=== PATIENT | male | born 1995 | race Hispanic/Latino ===

== ENCOUNTER 2023-10-18 12:59 | Emergency (ER) | payer BC ==
[2023-10-18 13:24] LABS: Absolute Basophils 0.1 K/uL (0-0.5); Absolute Eosinophils 0.2 K/uL (0-0.5); Absolute Lymphocytes (CBC) 2.7 K/uL (0.7-4.9); Absolute Monocytes 0.7 K/uL (0.1-1.3); Absolute Neutrophil 5.5 K/uL (1.8-8.0); Basophils % 0.6 % (0-1.3); Eosinophils % 2.1 % (0-4.4); Hematocrit 49.4 % (39.6-49.0); Hemoglobin 15.8 g/dL (13.6-17.9); Lymphocytes % 29.7 % (15.3-44.8); MCH 27.6 pg (27.0-35.0); MCHC 32.1 g/dL (32.0-36.0); MPV 8.3 fL (7.6-11.3); Monocytes % 7.4 % (3.3-12.3); Neutrophils % 60.2 % (41.7-73.7); Platelets 269 thou/uL (152-406); RBC Red Blood Cell Count 5.75 M/uL (4.33-5.43); Red Cell Distribution Width 13.6 % (12.1-15.2)
[2023-10-18 13:29] LABS: Specific Gravity 1.022 (1.005-1.030); Sqamous Epithelial <5 /HPF (None Seen); Urine Bacteria None Seen /HPF (<20); Urine Bilirubin NEGATIVE (Negative); Urine Blood Negative (Negative); Urine Clarity Clear (Clear); Urine Color Light-Yellow (Yellow); Urine Culture Reflex Order NOT NEEDED; Urine Glucose NEGATIVE (Negative); Urine Ketones NEGATIVE (Negative); Urine Microscopic Reflex YN ORDER UMIC; Urine Mucus Slight /HPF (None Seen); Urine Nitrite NEGATIVE (Negative); Urine Protein NEGATIVE (Negative); Urine RBC <5 /HPF (None Seen); Urine Urobilinogen Normal (Normal); Urine WBC <5 /HPF (<5)
[2023-10-18 13:42] LABS: Albumin 3.8 g/dL (3.4-5.0); Albumin/Globulin Ratio 0.8 (1.1-1.8); Anion Gap 7.9 mEq/L (5.0-15.0); Bilirubin Total 0.2 mg/dL (0.2-1.0); Globulin 4.5 g/dL (2.3-3.5); Potassium 3.9 mEq/L (3.5-5.1); Protein, Total 8.3 g/dL (6.4-8.2)
[2023-10-18] MEDS ORDERED: MAGNES/ALUMIN/SIMET 30ML UCUP ONE (13:51)
[2023-10-18] MEDS ORDERED: LIDOCAINE VISCOUS 2% 10ML ORAL SOLN ONE ×2 (13:51)
[2023-10-18] MEDS ORDERED: PANTOPRAZOLE 40 MG INJ ONE (13:51)
[2023-10-18] MEDS ORDERED: MORPHINE 4 MG/ML SYR ONE (14:33)
[2023-10-18] MEDS ORDERED: ONDANSETRON 4 MG/2 ML VIAL ONE (14:33)
--- NOTE | 2023-10-18 14:57 | RAD REPORT ---
EXAM DESCRIPTION: CTAbdomen Pelvis W Contrast - 10/18/2023 2:29 pm CLINICAL HISTORY: ABD PAIN COMPARISON: No comparisons TECHNIQUE: CT of the abdomen and pelvis was performed with IV contrast. All CT scans are performed using dose optimization technique as appropriate and may include automated exposure control or mA/KV adjustment according to patient size. FINDINGS: Lower chest: No acute abnormality. Liver: Hepatic steatosis . Biliary: A 6 mm stone is impacted in the region of the cystic duct. The gallbladder is distended. No pericholecystic inflammatory changes. Stomach: No significant focal abnormality. Duodenum: No significant focal abnormality. Pancreas: No significant abnormality. Spleen: No significant abnormality. Adrenal: No suspicious lesions. Kidney/ureter: No hydronephrosis. No renal calculi. Retroperitoneum: No retroperitoneal adenopathy. Vascular: No aneurysm. Bowel: Normal appendix. No bowel obstruction.. Peritoneum: No ascites or free air. Bladder: Grossly unremarkable. Reproductive: No adnexal masses. Bones: No acute fracture. Other: n/a IMPRESSION: A stone is impacted in the cystic duct. The gallbladder is distended but no pericholecys tic inflammatory changes. Early or mild acute cholecystitis difficult to exclude. Hepatic steatosis a lso noted.
--- NOTE | 2023-10-18 15:24 | EDPHYS ---
Physician Documentation [facility] Name: Misael Hernandez Age: 28 yrs Sex: Male : 1995 Arrival Date: 10/18/2023 Time: 12:59 Bed 20 Private MD: LAUREN Physician Campos Siddiqi HPI: 10/17 13:37 This 28 yrs old Male presents to ER via Ambulatory with complaints of jr8 Abdominal Pain, Shortness Of Breath. 13:37 The patient presents with abdominal pain. Onset: The symptoms/episode began/occurred jr8 acutely, today. The symptoms do not radiate. Associated signs and symptoms: Pertinent positives: nausea and vomiting. The symptoms are described as stabbing. Modifying factors: The symptoms are alleviated by nothing, the symptoms are aggravated by food. Severity of pain: At its worst the pain was moderate in the emergency department the pain is unchanged. The patient has experienced similar episodes in the past, a few times. The patient has not recently seen a physician. Patient stated that he has had on/off abdominal pain for past 6 months. Stated that he drinks heavily 1-2 times per week. Has pain with food occasionally. Had several drinks last night along with greasy food. Stated that pain started again and cannot get it to go away. Normally last about 1-2 hours and can take Tums or Pepto-Bismol with relief. . Historical: - Allergies: 13:04 No Known Allergies; iw - Home Meds: 13:04 None [Active]; iw - PMHx: 13:04 None; iw - PSHx: 13:04 Tonsillectomy; iw - Immunization history:: Adult Immunizations Adult Immunizations not up to date. - Infectious Disease History:: Denies. - Social history:: Smoking status: Patient denies any tobacco usage or history of. ROS: 13:37 Eyes: Negative for injury, pain, redness, and discharge, ENT: Negative for injury, jr8 pain, and discharge, Neck: Negative for injury, pain, and swelling, Cardiovascular: Negative for chest pain, palpitations, and edema, Respiratory: Negative for shortness of breath, cough, wheezing, and pleuritic chest pain, Back: Negative for injury and pain, MS/Extremity: Negative for injury and deformity, Skin: Negative for injury, rash, and discoloration, Neuro: Negative for headache, weakness, numbness, tingling, and seizure, 13:37 Abdomen/GI: Positive for abdominal pain, nausea and vomiting, Negative for diarrhea, hematemesis, black/tarry stool, Exam: 13:37 Constitutional: This is a well developed, well nourished patient who is awake, alert, jr8 and in no acute distress. Eyes: Pupils equal round and reactive to light, extra-ocular motions intact. Lids and lashes normal. Conjunctiva and sclera are non-icteric and not injected. Cornea within normal limits. Periorbital areas with no swelling, redness, or edema. Neck: Trachea midline, no thyromegaly or masses palpated, and no cervical lymphadenopathy. Supple, full range of motion without nuchal rigidity, or vertebral point tenderness. No Meningismus. Cardiovascular: Regular rate and rhythm with a normal S1 and S2. No gallops, murmurs, or rubs. Normal PMI, no JVD. No pulse deficits. Respiratory: Lungs have equal breath sounds bilaterally, clear to auscultation and percussion. No rales, rhonchi or wheezes noted. No increased work of breathing, no retractions or nasal flaring. Back: No spinal tenderness. No costovertebral tenderness. Full range of motion. Skin: Warm, dry with normal turgor. Normal color with no rashes, no lesions, and no evidence of cellulitis. MS/ Extremity: Pulses equal, no cyanosis. Neurovascular intact. Full, normal range of motion. Neuro: Awake and alert, GCS 15, oriented to person, place, time, and situation. Cranial nerves II-XII grossly intact. Motor strength 5/5 in all extremities. Sensory grossly intact. Cerebellar exam normal. Normal gait. 13:37 Abdomen/GI: Inspection: abdomen appears normal, Bowel sounds: active, all quadrants, Palpation: soft, in all quadrants, moderate abdominal tenderness, in the epigastric area, right upper quadrant and left upper quadrant, mass, is not appreciated, rebound tenderness, is not appreciated, voluntary guarding, is not appreciated, involuntary guarding, is not appreciated, no appreciated organomegaly, Indicators: McBurney's point is not tender, Gama's sign is negative, Rovsing's sign is negative, Liver: tenderness, is not appreciated, Vital Signs: 13:03 BP 141 / 94; Pulse 84; Resp 16; Pulse Ox 98% on R/A; Weight 102.06 kg; Height 5 ft. 6 iw in. ; Pain 6/10; 14:38 BP 125 / 61; Pulse 96; Resp 16; Pulse Ox 99% ; cm10 15:58 BP 143 / 76; Pulse 68; Resp 16; Pulse Ox 99% ; cm10 13:03 Body Mass Index 36.32 (102.06 kg, 167.64 cm) iw 13:03 Pain Scale: Adult iw MDM: 13:19 Patient medically screened. jr8 13:37 Differential diagnosis: bowel obstruction, cholecystitis, Cholelithiasis, jr8 diverticulitis, gastritis, gastroesophageal reflux disease, Hepatitis, non-specific abd pain, pancreatitis, Peptic Ulcer Disease. 15:16 Data reviewed: vital signs, nurses notes, lab test result(s), radiologic studies, CT jr8 scan. 15:20 Consideration of Admission/Observation Escalation of care including jr8 admission/observation considered. Management of patient was discussed with the following: Mud Analysis Well Logging Captain: Dr. whitney consulted on case secondary to gallbladder distension and 6mm cystic duct stone noted on CT. Wants to see if patient can tolerated outpatient therapy and would see patient on Friday. If not would be happy to admit. Discussed with patient his options. Wants to do outpatient first and is fine with seeing him on Friday. Pain controlled at this time. Will start on pain meds, abx, and nausea meds . Counseling: I had a detailed discussion with the patient and/or guardian regarding the historical points, exam findings, and any diagnostic results supporting the discharge/admit diagnosis, lab results, radiology results, the need for outpatient follow up, a general surgeon, to return to the emergency department if symptoms worsen or persist or if there are any questions or concerns that arise at home. 10/17 13:10 Order name: CBC with Diff; Complete Time: 13:33 10/17 13:10 Order name: CMP; Complete Time: 14:01 10/17 13:10 Order name: Lipase; Complete Time: 14:01 10/17 13:14 Order name: Urinalysis w/ reflexes; Complete Time: 13:33 cm10 10/17 14:02 Order name: CT Abd/Pelvis - IV Contrast Only; Complete Time: 15:00 8 10/17 13:10 Order name: IV Saline Lock; Complete Time: 13:15 jr8 10/17 13:10 Order name: Labs collected and sent; Complete Time: 13:15 jr8 Administered Medications: 13:58 Drug: GI Cocktail without - (Maalox PO 30 ml, Lidocaine Mucous Membrane 2 % 15 cm10 ml) PO once Route: PO; 14:55 Follow up: Response: No adverse reaction; No change in condition cm10 13:58 Drug: Pantoprazole IVP 40 mg IVP once Route: IVP; Site: right antecubital; cm10 14:55 Follow up: Response: No adverse reaction; No change in condition cm10 14:38 Drug: morphine IVP or IV 4 mg IVP once over 4 mins Route: IVP; Infused Over: 4 mins; cm10 Site: right antecubital; 15:00 Follow up: Response: No adverse reaction cm10 14:38 Drug: Ondansetron IVP 4 mg IVP once; over 2 minutes Route: IVP; Site: right antecubital;cm10 15:08 Follow up: Response: No adverse reaction cm10 Disposition Summary: 10/18/23 15:23 Discharge Ordered Notes: Location: Home jr8 Problem: new jr8 Symptoms: have improved jr8 Condition: Stable jr8 Diagnosis - Epigastric pain jr8 - Other cholelithiasis with obstruction jr8 Followup: jr8 - With: Earl Whitney MD - When: 1 - 2 days - Reason: Recheck today's complaints, Continuance of care, Re-evaluation by your physician Discharge Instructions: - Discharge Summary Sheet jr8 - Abdominal Pain, Adult jr8 - Biliary Colic, Adult jr8 - Cholelithiasis jr8 - Gallbladder Eating Plan jr8 Forms: - Medication Reconciliation Form jr8 - Antibiotic Education jr8 - Prescription Opioid Use jr8 - Patient Portal Instructions jr8 - Leadership Thank You Letter jr8 Prescriptions: - Augmentin 875-125 mg Oral Tablet - take 1 tablet ORAL route every 12 hours for 10 days; 20 tablet; Refills: 0, jr8 Product Selection Permitted - Zofran 4 mg Oral tablet - take 1 tablet ORAL route 3 times per day As needed; 20 tablet; Refills: 0, jr8 Product Selection Permitted - Tramadol 50 mg Oral tablet - take 2 tablet ORAL route every 8 hours as needed; 24 tablet; Refills: 0, jr8 Product Selection Permitted Signatures: Dispatcher [employer] Shanell Mckeon, RN RN iw Nilesh Mendoza PA PA jr8 Jennifer Wayne RN RN cm10
--- NOTE | 2023-10-18 15:24 | ER ---
Nurse's Notes [facility] Name: Misael Hernandez Age: 28 yrs Sex: Male : 1995 Arrival Date: 10/18/2023 Time: 12:59 Bed 20 Private MD: Diagnosis: Epigastric pain;Other cholelithiasis with obstruction Presentation: 10/17 13:03 Chief complaint: Patient states: upper abd pain since 4 am, vomited once , was drinking iw a lot night. Coronavirus screen: At this time, the client does not indicate any symptoms associated with coronavirus-19. Ebola Screen: No symptoms or risks identified at this time. Initial Sepsis Screen: Does the patient meet any 2 criteria? No. Patient's initial sepsis screen is negative. Does the patient have a suspected source of infection? No. Patient's initial sepsis screen is negative. Risk Assessment: Do you want to hurt yourself or someone else? Patient reports no desire to harm self or others. Onset of symptoms was October 18, 2023. 13:03 Method Of Arrival: Ambulatory iw 13:03 Acuity: ERENDIRA 3 iw Triage Assessment: 13:20 General: Appears in no apparent distress. uncomfortable, Behavior is calm, cooperative. cm10 Pain: Complains of pain in epigastric area Pain does not radiate. Pain currently is 6 out of 10 on a pain scale. Quality of pain is described as sharp, Pain began suddenly. Neuro: No deficits noted. Level of Consciousness is awake, alert, obeys commands, Oriented to person, place, time, situation, Appropriate for age. Respiratory: No deficits noted. Airway is patent Respiratory effort is even, unlabored, Respiratory pattern is regular, symmetrical. GI: No deficits noted. Abdomen is flat, Bowel sounds hyperactive in right upper quadrant, left upper quadrant, right lower quadrant and left lower quadrant. Derm: No deficits noted. Skin is intact, Skin is pink, warm \T\ dry. Historical: - Allergies: 13:04 No Known Allergies; iw - Home Meds: 13:04 None [Active]; iw - PMHx: 13:04 None; iw - PSHx: 13:04 Tonsillectomy; iw - Immunization history:: Adult Immunizations Adult Immunizations not up to date. - Infectious Disease History:: Denies. - Social history:: Smoking status: Patient denies any tobacco usage or history of. Screenin:21 [facility] ED Fall Risk Assessment (Adult) History of falling in the last 3 months, cm10 including since admission No falls in past 3 months (0 pts) Confusion or Disorientation No (0 pts) Intoxicated or Sedated Yes (3 pts) Impaired Gait No (0 pts) Mobility Assist Device Used No (0 pt) Altered Elimination No (0 pt) Score/Fall Risk Level 0 - 2 = Low Risk Oriented to surroundings, Maintained a safe environment, Provided non-skid footwear, Hourly rounding (assess needs \T\ fall precautionary measures) done. Abuse screen: Denies threats or abuse. Denies injuries from another. Nutritional screening: No deficits noted. Tuberculosis screening: No symptoms or risk factors identified. Assessment: 13:58 Reassessment: Patient appears in no apparent distress at this time. No changes from cm10 previously documented assessment. Patient and/or family updated on plan of care and expected duration. Pain level reassessed. Patient is alert, oriented x 3, equal unlabored respirations, skin warm/dry/pink. Vital Signs: 13:03 BP 141 / 94; Pulse 84; Resp 16; Pulse Ox 98% on R/A; Weight 102.06 kg; Height 5 ft. 6 iw in. ; Pain 6/10; 14:38 BP 125 / 61; Pulse 96; Resp 16; Pulse Ox 99% ; cm10 15:58 BP 143 / 76; Pulse 68; Resp 16; Pulse Ox 99% ; cm10 13:03 Body Mass Index 36.32 (102.06 kg, 167.64 cm) iw 13:03 Pain Scale: Adult iw ED Course: 13:00 Patient arrived in ED. im 13:04 Triage completed. iw 13:04 Arm band placed on. iw 13:10 Nilesh Mendoza PA is PHCP. jr8 13:10 Campos Siddiqi MD is Attending Physician. jr8 13:14 Jennifer Wayne, AUNG is Primary Nurse. cm10 13:15 CBC with Diff Sent. cm10 13:15 CMP Sent. cm10 13:15 Lipase Sent. cm10 13:15 Initial lab(s) drawn, by ut, sent to lab. Urine collected: clean catch specimen. cm10 Inserted saline lock: 20 gauge in right antecubital area, using aseptic technique. Blood collected. Flushed with 10 mL NS. 13:15 Urinalysis w/ reflexes Sent. cm10 13:21 Patient has correct armband on for positive identification. Bed in low position. Call cm10 light in reach. Side rails up X 1. Provided Education on: ER process and procedures.. Pulse ox on. NIBP on. 14:30 CT Abd/Pelvis - IV Contrast Only In Process Unspecified. EDMS 15:22 Earl Rodriguez MD is Referral Physician. [facility] 15:59 No provider procedures requiring assistance completed. IV discontinued, intact, cm10 bleeding controlled, No redness/swelling at site. Pressure dressing applied. Administered Medications: 13:58 Drug: GI Cocktail without - (Maalox PO 30 ml, Lidocaine Mucous Membrane 2 % 15 cm10 ml) PO once Route: PO; 14:55 Follow up: Response: No adverse reaction; No change in condition cm10 13:58 Drug: Pantoprazole IVP 40 mg IVP once Route: IVP; Site: right antecubital; cm10 14:55 Follow up: Response: No adverse reaction; No change in condition cm10 14:38 Drug: morphine IVP or IV 4 mg IVP once over 4 mins Route: IVP; Infused Over: 4 mins; cm10 Site: right antecubital; 15:00 Follow up: Response: No adverse reaction cm10 14:38 Drug: Ondansetron IVP 4 mg IVP once; over 2 minutes Route: IVP; Site: right antecubital;cm10 15:08 Follow up: Response: No adverse reaction cm10 Medication: 13:21 VIS not applicable for this client. cm10 Outcome: 15:23 Discharge ordered by . jr8 15:59 Discharged to home ambulatory, with significant other, cm10 15:59 Condition: good 15:59 Discharge instructions given to patient, Instructed on discharge instructions, follow up and referral plans. medication usage, Demonstrated understanding of instructions, follow-up care, medications, Prescriptions given X 3, 16:00 Patient left the ED. cm10 Signatures: Dispatcher [employer] EDMS Shanell Chappell RN RN iw Roszak, Josh, PA PA jr8 Mery Musa Clarissa, RN RN cm10
[2023-10-18 16:23] VITALS: O2SAT 99
[2023-10-18 16:24] VITALS: BP 143/76
== END 2023-10-18 16:00 | disposition home or self-care (01) ==
LOC: ER 12:59
DX: K80.81 Other cholelithiasis with obstruction (principal)
CPT/HCPCS: 85025; 81001; 36415; 83690; 80053; 74177; 96375; 96374; 99284; Q9967; J2470; J2405

== ENCOUNTER 2024-10-20 02:35 | Emergency (ER) | payer BC ==
--- OUTSIDE RECORDS SUMMARY | 2024-10-20 02:38 | XMS REPORT | Continuity of Care Document ---
Author Name Unknown Address [address] [place] [address] Organization [facility] [place] Address [address] [place] [address] Care Team Providers Care Income Tax Preparer Name Role Phone Driss Blake Attending Clinician Unavailable Shield Attending Clinician Unavailable SHARON MELÉNDEZ Attending Clinician DUNCAN Bowman Attending Clinician OLIVIER Kuo Attending Clinician Unavailable PATTI HOLDEN Attending Clinician Unavailab NILS Jeffries Attending Clinician Unavailable Shield Admitting Clinician Unavailable NILS HODGES Admitting Clinician Unavailable Payers Payer Name Policy Type Policy Number Effective Date Expirati on Date Source [facility] 6 [id number] 2022 00:00:00 Common [facility] [id number] [facility] [id number] 2018 00:00:00 Problems Condition Name Condition Details Condition Category Status Onset Date Resolution Date Last Treatment Date Treating Clinician Comments Source [id number] Mixed hyperlipid emia Problem [facility] [id number] Obesity (BMI 30-39.9) Problem [facility] [id number] Anxiety Problem [facility] Social History Social Habit Start Date Stop Date Quantity Comments Source History of Tobacco Use [facility] Sex Assigned At [facility] Smoking Status Start Date Stop Date Source Never Smoker [facility] Medications Ordered Medication Name Filled Medication Name Start Date Stop Date Current Medication? Ordering Clinician Indication Dosage Frequency Signature (SIG) Comments Components Source Ciprofloxac in-dexAMETH asone 0.3-0.1 % Ciprofloxac in-dexAMETH asone 0.3-0.1 % 2022-03 00:00: 00 No 4{drops _into_a ffected _ear} BID Ciprofloxa michelle-dexAME THasone 0.3-0.1 % Ciprofloxac in-dexAMETH asone 0.3-0.1 % Ciprofloxac in-dexAMETH asone 0.3-0.1 % 2022-03 00:00: 00 No 4{drops _into_a ffected _ear} BID Ciprofloxa michelle-dexAME THasone 0.3-0.1 % Ciprofloxac in-dexAMETH asone 0.3-0.1 % Ciprofloxac in-dexAMETH asone 0.3-0.1 % 2022-03 00:00: 00 No 4{drops _into_a ffected _ear} BID Ciprofloxa michelle-dexAME THasone 0.3-0.1 % Ciprofloxac in-dexAMETH asone 0.3-0.1 % Ciprofloxac in-dexAMETH asone 0.3-0.1 % 2022-03 00:00: 00 No 4{drops _into_a ffected _ear} BID Ciprofloxa michelle-dexAME THasone 0.3-0.1 % Terbinafine HCl 1 % Terbinafine HCl 1 % No 1{appli cation} BID Terbinafin e HCl 1 % Terbinafine HCl 1 % Terbinafine HCl 1 % No 1{appli cation} BID Terbinafin e HCl 1 % Terbinafine HCl 1 % Terbinafine HCl 1 % No 1{appli cation} BID Terbinafin e HCl 1 % Terbinafine HCl 1 % Terbinafine HCl 1 % No 1{appli cation} BID Terbinafin e HCl 1 % Vital Signs Vital Name Observation Time Observation Value Comments Allan dumont height 2023-04-04 16:00:00 67.5 [in_i] Comm on [facility] weight 2023-04-04 16:00:00 228.2 [lb_av] Co mmon [facility] temperature 2023-04-04 16:00:00 97.2 [degF] Com [facility] bmi 2023-04-04 16:00:00 35.21 kg/m2 Comm on [facility] oximetry 2023-04-04 16:00:00 98 % Commo n [facility] respiratory rate 2023-04-04 16:00:00 16 /min [facility] blood pressure systolic 2023-04-04 16:00:00 128 mm[Hg] Common [facility] blood pressure diastolic 2023-04-04 16:00:00 86 mm[Hg] [facility] height 2023-01-01 08:00:00 67.5 [in_i] Comm on [facility] weight 2023-01-01 08:00:00 228 [lb_av] Comm on [facility] temperature 2023-01-01 08:00:00 98.2 [degF] Com [facility] bmi 2023-01-01 08:00:00 35.18 kg/m2 Comm on [facility] oximetry 2023-01-01 08:00:00 99 % Commo n [facility] respiratory rate 2023-01-01 08:00:00 16 /min [facility] blood pressure systolic 2023-01-01 08:00:00 132 mm[Hg] [facility] diastolic 2023-01-01 08:00:00 89 mm[Hg] [facility] height 2022-12-18 16:00:00 67.5 [in_i] Comm on [facility] weight 2022-12-18 16:00:00 223.6 [lb_av] Co mmon [facility] temperature 2022-12-18 16:00:00 98.0 [degF] Com mon [facility] bmi 2022-12-18 16:00:00 34.5 kg/m2 Commo n [facility] oximetry 2022-12-18 16:00:00 99 % Commo n [facility] respiratory rate 2022-12-18 16:00:00 16 /min [facility] blood pressure systolic 2022-12-18 16:00:00 138 mm[Hg] [facility] blood pressure diastolic 2022-12-18 16:00:00 96 mm[Hg] [facility] Plan of Care Planned Activity Planned Date Details Comments Source Instructions [facility] Encounters Start Date/Time End Date/Time Encounter Type Admission Type Attending Clinicians Care Facility Care Department Encounter ID Source 2023-06-04 16:57:00 Outpatient Driss Blake [facility] [id number] [facility] 2023-04-03 11:28:01 Outpatient Driss Blake [facility] [id number] [facility] 2023-01-01 08:38:01 Outpatient Driss Blake [facility] [id number] [facility] 2022-12-31 14:23:00 Outpatient Driss Blake [facility] [id number] [facility] 2022-12-18 15:36:00 Outpatient Driss Blake [facility] [id number] [facility] 2023-04-04 00:00:00 2023-04-04 00:00:00 PREV VISIT EST AGE 18-39 [facility] [id number] [facility] 2023-01-01 00:00:00 2023-01-01 00:00:00 OFFICE VISIT ESTAB PT LEVEL 4 [facility] [id number] [facility] 2022-12-23 00:00:00 2022-12-23 00:00:00 (TEL) [facility] [id number] [facility] 2022-12-18 00:00:00 2022-12-18 00:00:00 OFFICE VISIT NEW PT LEVEL 4 [facility] [id number] [facility] 2010-08-28 12:19:00 2010-08-28 14:06:00 Emergency ER IMMELEANOR, [facility] [id number] [facility] 2009-05-01 11:31:00 2009-05-01 11:31:00 Outpatient DUNCAN ALDRIDGE [facility] [id number] [facility] 2008-11-02 16:11:00 2008-11-02 19:12:00 Emergency ER MEDHAT, [facility] [id number] [facility] 2003-08-29 15:53:00 2003-08-29 17:40:00 Emergency ER OLIVIER OLIVO [facility] [id number] [facility] 2000-09-25 18:30:00 2000-09-25 22:05:00 Emergency ER PATTI HOLDEN [facility] [id number] [facility] 2000-04-29 02:34:00 2000-04-29 14:45:00 Inpatient ER NILS HODGES [facility] [id number] [facility] Results Test Description Test Time Test Comments Results Result Co mments Source
[2024-10-20] MEDS ORDERED: NA CHLORIDE 0.9% 1,000 ML ONE (03:00)
[2024-10-20] MEDS ORDERED: FAMOTIDINE 20 MG/2 ML VIAL IV ONE (03:00)
[2024-10-20] MEDS ORDERED: ONDANSETRON 4 MG/2 ML VIAL ONE (03:00)
[2024-10-20 03:18] LABS: Absolute Lymphocytes (CBC) 4.5 K/uL (0.7-4.9); Hematocrit 46.7 % (39.6-49.0); Hemoglobin 15.5 g/dL (13.6-17.9); MCH 27.5 pg (27.0-35.0); MCHC 33.1 g/dL (32.0-36.0); MCV 83.1 fL (80-100); MPV 7.8 fL (7.6-11.3); Nucleated RBC Absolute Count 0.0 (0-0); Nucleated Red Blood Cells % 0.1 % (0-0); RBC Red Blood Cell Count 5.62 M/uL (4.33-5.43); White Blood Count 11.60 thou/uL (4.3-10.9)
[2024-10-20 03:34] LABS: ALT/SGPT 92.0 U/L (16-61); Albumin 3.4 g/dL (3.4-5.0); Albumin/Globulin Ratio 0.8 (1.1-1.8); Alkaline Phosphatase 119.0 U/L (45-117); Anion Gap 9.0 mEq/L (5.0-15.0); BUN Blood Urea Nitrogen 17.0 mg/dL (7-18); Globulin 4.1 g/dL (2.3-3.5); Glucose Level 102.0 mg/dL (74-106); Lipase 27.0 U/L (13-75)
[2024-10-20 03:35] LABS: AST/SGOT 38.0 U/L (15-37); Potassium 4.0 mEq/L (3.5-5.1)
[2024-10-20 05:36] LABS: Sqamous Epithelial None Seen /HPF (None Seen); Urine Micro Reflex YN NO BILL MICROSCOPIC
--- NOTE | 2024-10-20 05:56 | RAD REPORT ---
INDICATION: ABD PAIN COMPARISON: CT abdomen pelvis October 18, 2023 TECHNIQUE: Enhanced CT of the abdomen and pelvis performed per protocol. Oral contrast was not administered. Mul tiplanar reconstructions were provided. Dose reduction techniques were utilized for this exam including automated exposure control, adjustmen ts to mA and/or kV according to patient's size, and the use of iterative reconstruction techniques. FINDINGS: LOWER CHEST: Lung bases are clear. LIVER: Unremarkable. SPLEEN: Unremarkable. PANCREAS: Unremarkable. ADRENALS: Unremarkable. KIDNEYS: Unremarkable. GALLBLADDER: Unremarkable. VESSELS: Aortoiliac system normal in course and caliber. BOWEL: Unremarkable. APPENDIX: Normal. FLUID: No free fluid or abnormal fluid collection. ADENOPATHY: No pathologic adenopathy. BLADDER: Unremarkable. PELVIS: Prostate is normal. BONES: No acute bony abnormality. SOFT TISSUES: Unremarkable. IMPRESSION: No acute abdominopelvic findings. Electronically signed by: Jonathon Morales DO 10/20/2024 05:50 AM CDT NR Due to temporary technical issues with the PACS/[employer] reporting system, reports are being sonya d by the in-house radiologist without review as a courtesy to ensure prompt reporting the interpreting radiologist is fully responsible for the content of the report. Transcribed Date/Time: 10/20/2024 5:56 AM
--- NOTE | 2024-10-20 06:24 | EDPHYS ---
Physician Documentation [facility] Name: Misael Hernandez Age: 29 yrs Sex: Male : 1995 Arrival Date: 10/20/2024 Time: 02:35 Bed 15 Private MD: ED Physician Leandro Thakur HPI: 10/20 02:46 This 29 yrs old Male presents to ER via Unassigned with complaints of sp4 Abdominal Pain, Vomiting. 19:52 Patient is very pleasant 29-year-old male presents with complaint of upper abdominal sp4 pain and vomiting starting yesterday at 9 PM.. Historical: - Allergies: 02:50 No Known Allergies; br2 - PSHx: 02:50 Tonsillectomy; br2 - Immunization history:: Adult Immunizations not up to date. - Infectious Disease History:: Denies. - Social history:: Smoking status: Patient reports the use of cigarette tobacco products, denies chronic smoking, but will smoke occasionally, Patient uses alcohol, occasionally. Patient/guardian denies using street drugs. - Family history:: not pertinent. ROS: 19:52 Constitutional: Negative for fever, chills, and weight loss, positive for upper sp4 abdominal pain and vomiting. 19:52 All other systems are negative, Exam: 19:52 Constitutional: This is a well developed, well nourished patient who is awake, alert, sp4 and in no acute distress. Head/Face: Normocephalic, atraumatic. Eyes: Pupils equal round and reactive to light, extra-ocular motions intact. Lids and lashes normal. Conjunctiva and sclera are not injected. Cornea within normal limits. Periorbital areas with no swelling, redness, or edema. ENT: Nares patent. No nasal discharge, no septal abnormalities noted. Tympanic membranes are normal and external auditory canals are clear. Oropharynx with no redness, swelling, or masses, exudates, or evidence of obstruction, uvula midline. Mucous membranes moist. Neck: Trachea midline, no thyromegaly or masses palpated, and no cervical lymphadenopathy. Supple, full range of motion without nuchal rigidity, or vertebral point tenderness. Chest/axilla: Normal chest wall appearance and motion. Nontender with no deformity. No lesions are appreciated. Cardiovascular: Regular rate and rhythm with a normal S1 and S2. No gallops, murmurs, or rubs. No pulse deficits. Respiratory: Lungs have equal breath sounds bilaterally, clear to auscultation and percussion. No rales, rhonchi or wheezes noted. No increased work of breathing, no retractions or nasal flaring. Abdomen/GI: Soft, with normal bowel sounds. No distension or tympany. No guarding or rebound. No evidence of tenderness throughout. Back: No spinal tenderness. No costovertebral tenderness. Skin: Warm, dry with normal turgor. Normal color with no rashes, no lesions, and no evidence of cellulitis. MS/ Extremity: Pulses equal, no cyanosis. Neurovascular intact. Full, normal range of motion. Neuro: Awake and alert, GCS 15, oriented to person, place, time, and situation. Cranial nerves II-XII grossly intact. Motor strength 5/5 in all extremities. Sensory grossly intact. Psych: Awake, alert, with orientation to person, place and time. Behavior, mood, and affect are within normal limits Vital Signs: 02:48 BP 151 / 90; Pulse 56; Resp 18; Pulse Ox 99% on R/A; Weight 99.34 kg; Height 5 ft. 6 br2 in. ; Pain 7/10; 03:29 BP 138 / 72; Pulse 60; Resp 18; Pulse Ox 99% ; kt5 04:02 BP 154 / 78; Pulse 58; Resp 16 S; Pulse Ox 98% on R/A; kt5 05:08 BP 140 / 62; Pulse 68; Resp 18; Pulse Ox 99% ; kt5 05:51 BP 135 / 65; Pulse 62; Resp 18 S; Pulse Ox 99% on R/A; kt5 02:48 Body Mass Index 35.35 (99.34 kg, 167.64 cm) br2 02:48 Pain Scale: Adult br2 [place] Coma Score: 19:52 Eye Response: spontaneous(4). Motor Response: obeys commands(6). Verbal Response: sp4 oriented(5). Total: 15. MDM: 02:47 Medical Screening Exam initiated sp4 06:21 ED course: INDICATION: ABD PAIN COMPARISON: CT abdomen pelvis October 18, 2023 sp4 TECHNIQUE: Enhanced CT of the abdomen and pelvis performed per protocol. Oral contrast was not administered. Multiplanar reconstructions were provided. Dose reduction techniques were utilized for this exam including automated exposure control, adjustments to mA and/or kV according to patient's size, and the use of iterative reconstruction techniques. FINDINGS: LOWER CHEST: Lung bases are clear. LIVER: Unremarkable. SPLEEN: Unremarkable. PANCREAS: Unremarkable. ADRENALS: Unremarkable. KIDNEYS: Unremarkable. GALLBLADDER: Unremarkable. VESSELS: Aortoiliac system normal in course and caliber. BOWEL: Unremarkable. APPENDIX: Normal. FLUID: No free fluid or abnormal fluid collection. ADENOPATHY: No pathologic adenopathy. BLADDER: Unremarkable. PELVIS: Prostate is normal. BONES: No acute bony abnormality. SOFT TISSUES: Unremarkable. IMPRESSION: No acute abdominopelvic findings.. 19:52 Differential diagnosis: Nonspecific abd pain, gastritis, cholecystitis, pancreatitis, sp4 viral gastroenteritis, gastroenteritis. Data reviewed: vital signs, nurses notes, lab test result(s), radiologic studies, CT scan. Consideration of Admission/Observation Escalation of care including admission/observation considered. ED course: CT reveals this unremarkable gallbladder. Patient referred to Dr. Balderas for consultation for further gallbladder issues. . 19:52 ED course: Clear liquid diet advised for the next 24 hours. As needed medications sp4 prescribed.. 10/20 02:47 Order name: CBC with Diff; Complete Time: 06:14 sp4 10/20 02:47 Order name: CMP; Complete Time: 06:14 sp4 10/20 02:47 Order name: Lipase; Complete Time: 06:14 sp4 10/20 02:47 Order name: UA W/ Microscopic; Complete Time: 06:14 sp4 10/20 04:06 Order name: CT Abd/Pelvis - IV Contrast Only sp4 10/20 02:47 Order name: IV Saline Lock; Complete Time: 03:03 sp4 10/20 02:47 Order name: Labs collected and sent; Complete Time: 03:03 sp4 Administered Medications: 03:03 Drug: Ondansetron IVP 8 mg IVP once; over 2 minutes Route: IVP; Site: right forearm; kt5 04:37 Follow up: Response: No adverse reaction; Nausea is decreased kt5 06:23 Follow up: Response: No adverse reaction; Nausea is decreased kt5 03:04 Drug: Famotidine IVP 20 mg IVP once; dilute with 10 mL 0.9% NaCl; give over 2 minutes kt5 Route: IVP; Site: right forearm; 04:37 Follow up: Response: No adverse reaction; Nausea is decreased kt5 06:23 Follow up: Response: No adverse reaction; Nausea is decreased kt5 03:04 Drug: NS 0.9% IV 1000 ml IV at 1 bolus Per protocol; to be given as a bolus over 60 kt5 minutes Route: IV; Rate: 1 bolus; Site: right forearm; 04:37 Follow up: IV Status: Completed infusion; IV Intake: 1000ml kt5 06:23 Follow up: IV Status: Completed infusion; IV Intake: 1000ml kt5 Disposition: 19:52 Chart complete. sp4 Disposition Summary: 10/20/24 06:23 Discharge Ordered Notes: Location: Home sp4 Problem: new sp4 Symptoms: have improved sp4 Condition: Stable sp4 Diagnosis - Acute Biliary colic sp4 - Upper abdominal pain, unspecified sp4 Followup: sp4 - With: Earl Rodriguez MD - When: 7 - 10 days - Reason: Recheck today's complaints Discharge Instructions: - Discharge Summary Sheet sp4 - Biliary Colic, Adult sp4 - Clear Liquid Diet, Adult, [id number] sp4 Forms: - Work release form sp4 - Patient Portal Instructions sp4 Prescriptions: - meloxicam 15 mg Oral tablet - take 1 tablet ORAL route daily PRN pain; 30 tablet; Refills: 0, Product sp4 Selection Permitted - Tramadol 50 mg Oral tablet - take 1 tablet ORAL route every 8 hours as needed; 20 tablet; Refills: 0, sp4 Product Selection Permitted - ondansetron 8 mg Oral Tablet,disintegrating - take 1 tablet ORAL route every 8 hours PRN nausea; 30 tablet; Refills: 0, sp4 Product Selection Permitted Signatures: Dispatcher [employer] Leandro Brandt MD MD sp4 Maegan Tolbert RN RN br2 Michelle Foote RN RN kt5
--- NOTE | 2024-10-20 06:24 | ER ---
Nurse's Notes [facility] Name: Misael Hernandez Age: 29 yrs Sex: Male : 1995 Arrival Date: 10/20/2024 Time: 02:35 Bed 15 Private MD: Diagnosis: Acute Biliary colic;Upper abdominal pain, unspecified Presentation: 10/20 02:48 Chief complaint: Patient states: PT HE BEGAN HAVING EPIGASTRIC PAIN AT APPROX 1900, br2 NAUSEA/VOMITING X1. DENIES DIARRHEA/FEVER. Coronavirus screen: Client denies travel out of the [place] in the last 14 days. Ebola Screen: Patient denies exposure to infectious person. Initial Sepsis Screen: Does the patient meet any 2 criteria? No. Patient's initial sepsis screen is negative. Does the patient have a suspected source of infection? No. Patient's initial sepsis screen is negative. Risk Assessment: Do you want to hurt yourself or someone else? Patient reports no desire to harm self or others. Onset of symptoms was October 19, 2024 at 19:00. 02:48 Method Of Arrival: Ambulatory br2 02:48 Acuity: ERENDIRA 3 br2 Triage Assessment: 02:50 General: Appears in no apparent distress. comfortable, Behavior is calm, cooperative. br2 Pain: Complains of pain in diaphragm and xiphoid area Pain currently is 7 out of 10 on a pain scale. Historical: - Allergies: 02:50 No Known Allergies; br2 - PSHx: 02:50 Tonsillectomy; br2 - Immunization history:: Adult Immunizations not up to date. - Infectious Disease History:: Denies. - Social history:: Smoking status: Patient reports the use of cigarette tobacco products, denies chronic smoking, but will smoke occasionally, Patient uses alcohol, occasionally. Patient/guardian denies using street drugs. - Family history:: not pertinent. Screenin:01 [facility] ED Fall Risk Assessment (Adult) History of falling in the last 3 months, kt5 including since admission No falls in past 3 months (0 pts) Confusion or Disorientation No (0 pts) Intoxicated or Sedated No (0 pts) Impaired Gait No (0 pts) Mobility Assist Device Used No (0 pt) Altered Elimination No (0 pt) Score/Fall Risk Level 0 - 2 = Low Risk. Abuse screen: Denies threats or abuse. Denies injuries from another. Nutritional screening: No deficits noted. Tuberculosis screening: No symptoms or risk factors identified. Assessment: 02:58 General: Appears in no apparent distress. comfortable, Behavior is calm, cooperative. kt5 Pain: Complains of pain in epigastric area and right upper quadrant Pain does not radiate. Pain currently is 7 out of 10 on a pain scale. Quality of pain is described as pressure, Pain began gradually, 1 day ago. Is continuous. Neuro: No deficits noted. Srivastava Agitation-Sedation Scale (RASS): 0 - Alert and Calm Level of Consciousness is awake, alert, obeys commands, Oriented to person, place, time, situation, Appropriate for age. Cardiovascular: No deficits noted. Reports None. Respiratory: Reports shortness of breath with pain. GI: Abdomen is flat, non-distended, Bowel sounds present X 4 quads. Abd is soft and non tender Abd is soft X 4 quads Abdomen is tender to palpation in epigastric area and right upper quadrant Reports upper abdominal pain, epigastric pain, nausea, vomiting. : No deficits noted. No signs and/or symptoms were reported regarding the genitourinary system. EENT: No deficits noted. No signs and/or symptoms were reported regarding the EENT system. Derm: No deficits noted. No signs and/or symptoms reported regarding the dermatologic system. Musculoskeletal: No deficits noted. No signs and/or symptoms reported regarding the musculoskeletal system. 04:05 Reassessment: Patient appears in no apparent distress at this time. No changes from kt5 previously documented assessment. Patient and/or family updated on plan of care and expected duration. Pain level reassessed. Patient is alert, oriented x 3, equal unlabored respirations, skin warm/dry/pink. Patient denies pain at this time. Patient states feeling better. Patient states symptoms have improved. 05:02 Reassessment: Patient appears in no apparent distress at this time. No changes from kt5 previously documented assessment. Patient and/or family updated on plan of care and expected duration. Pain level reassessed. Patient is alert, oriented x 3, equal unlabored respirations, skin warm/dry/pink. Patient denies pain at this time. Patient states feeling better. Patient states symptoms have improved. 05:51 Reassessment: Patient appears in no apparent distress at this time. No changes from kt5 previously documented assessment. Patient and/or family updated on plan of care and expected duration. Pain level reassessed. Patient is alert, oriented x 3, equal unlabored respirations, skin warm/dry/pink. Patient denies pain at this time. Patient states feeling better. Patient states symptoms have improved. Vital Signs: 02:48 BP 151 / 90; Pulse 56; Resp 18; Pulse Ox 99% on R/A; Weight 99.34 kg; Height 5 ft. 6 br2 in. ; Pain 7/10; 03:29 BP 138 / 72; Pulse 60; Resp 18; Pulse Ox 99% ; kt5 04:02 BP 154 / 78; Pulse 58; Resp 16 S; Pulse Ox 98% on R/A; kt5 05:08 BP 140 / 62; Pulse 68; Resp 18; Pulse Ox 99% ; kt5 05:51 BP 135 / 65; Pulse 62; Resp 18 S; Pulse Ox 99% on R/A; kt5 02:48 Body Mass Index 35.35 (99.34 kg, 167.64 cm) br2 02:48 Pain Scale: Adult br2 [place] Coma Score: 19:52 Eye Response: spontaneous(4). Motor Response: obeys commands(6). Verbal Response: sp4 oriented(5). Total: 15. ED Course: 02:37 Patient arrived in ED. gm2 02:46 Leandro Thakur MD is Attending Physician. sp4 02:50 Triage completed. br2 02:50 Arm band placed on right wrist. br2 03:01 Patient has correct armband on for positive identification. Placed in gown. Bed in low kt5 position. Call light in reach. Side rails up X 1. Client placed on continuous cardiac and pulse oximetry monitoring. NIBP monitoring applied. Door closed. Noise minimized. Warm blanket given. Pillow given. 03:03 Inserted saline lock: 20 gauge in right forearm, using aseptic technique. Blood kt5 collected. Flushed with 10 mL NS. 03:03 CBC with Diff Sent. kt5 03:03 CMP Sent. kt5 03:03 Lipase Sent. kt5 04:38 CT Abd/Pelvis - IV Contrast Only In Process Unspecified. EDMS 04:52 UA W/ Microscopic Sent. kt5 06:20 No provider procedures requiring assistance completed. IV discontinued, intact, kt5 bleeding controlled, No redness/swelling at site. Pressure dressing applied. 06:22 Earl Rodriguez MD is Referral Physician. sp4 06:37 Provided Education on: discharge. kt5 Administered Medications: 03:03 Drug: Ondansetron IVP 8 mg IVP once; over 2 minutes Route: IVP; Site: right forearm; kt5 04:37 Follow up: Response: No adverse reaction; Nausea is decreased kt5 06:23 Follow up: Response: No adverse reaction; Nausea is decreased kt5 03:04 Drug: Famotidine IVP 20 mg IVP once; dilute with 10 mL 0.9% NaCl; give over 2 minutes kt5 Route: IVP; Site: right forearm; 04:37 Follow up: Response: No adverse reaction; Nausea is decreased kt5 06:23 Follow up: Response: No adverse reaction; Nausea is decreased kt5 03:04 Drug: NS 0.9% IV 1000 ml IV at 1 bolus Per protocol; to be given as a bolus over 60 kt5 minutes Route: IV; Rate: 1 bolus; Site: right forearm; 04:37 Follow up: IV Status: Completed infusion; IV Intake: 1000ml kt5 06:23 Follow up: IV Status: Completed infusion; IV Intake: 1000ml kt5 Medication: 03:00 VIS not applicable for this client. kt5 Intake: 04:37 IV: 1000ml; Total: 1000ml. kt5 06:23 IV: 1000ml; Total: 2000ml. kt5 Outcome: 06:20 Discharged to home ambulatory, kt5 06:20 Condition: improved 06:20 Discharge instructions given to patient, Instructed on discharge instructions, follow up and referral plans. medication usage, Demonstrated understanding of instructions, follow-up care, medications, Prescriptions given X 2, 06:23 Discharge ordered by MD. sp4 06:37 Patient left the ED. kt5 Signatures: Dispatcher [employer] EDMS Leandro Thakur MD MD sp4 Carolee Jiang gm2 Maegan Tolbert RN RN br2 Michelle Foote RN RN kt5 Corrections: (The following items were deleted from the chart) 03:31 03:29 BP 148 / 72; Pulse 80bpm; Resp 18bpm; Pulse Ox 99%; kt5 kt5 05:10 03:01 Inserted saline lock: 20 gauge in right forearm, using aseptic technique. Blood kt5 collected. Flushed with 10 mL NS kt5
[2024-10-20 12:58] VITALS: O2SAT 99
[2024-10-20 12:59] VITALS: BP 135/65
== END 2024-10-20 06:37 | disposition home or self-care (01) ==
LOC: ER 02:35
DX: K80.50 Calculus of bile duct without cholangitis or cholecystitis without obstruction (principal); F17.210 Nicotine dependence, cigarettes, uncomplicated
CPT/HCPCS: 85025; 81001; 36415; 83690; 80053; 74177; Q9967; J2405; J7030